=== PATIENT | female | born 1945 | race Two or more races ===

== ENCOUNTER 2019-07-18 22:03 | Inpatient (IN) | payer BC ==
[~2019-07-18] VITALS: Ht 162.6 cm; Wt 48.5 kg
--- NOTE | 2019-07-18 22:07 | NUR ---
PT BIBRA. C/O "WOKE UP FROM CHEST DISCOMFORT X40 MINS AGO. GIVEN X1 SPRAY NITRO, CHEST DISCOMFORT BETTER. L ARM DISCOMFORT" AOX4. SISTER AT BEDSIDE. PT ON MONITOR IN BED 8. WILL CONTINUE TO MONITOR.
--- NOTE | 2019-07-18 22:08 | NUR ---
TECH AT BEDSIDE FOR EKG
--- NOTE | 2019-07-18 22:13 | NUR ---
PHLEB AT BEDSIDE FOR BLOOD DRAW
[2019-07-18] MEDS ORDERED: ASPIRIN 81 MG TAB.CHEW ONE (22:19)
[2019-07-18 22:24] LABS: BASOPHILS % (AUTO) 0.5 % (0.0-2.0); EOSINOPHILS % (AUTO) 0.8 % (0.0-6.0); HEMATOCRIT 32 % (33-45); HEMOGLOBIN 11.2 g/dL (11.5-14.8); LYMPHOCYTES % (AUTO) 39.4 % (20.0-44.0); MEAN CORPUSCULAR HGB CONC 35 g/dl (31.0-36.0); MEAN CORPUSCULAR VOLUME 84 fL (82-100); MONOCYTES # (AUTO) 0.5 /CMM (0.1-1.30); MONOCYTES % (AUTO) 6.9 % (2.0-12.0); NEUTROPHILS % (AUTO) 52.4 % (43.0-81.0); PLATELET COUNT (AUTO) 197 /CMM (150-450); RED BLOOD CELL COUNT(AUTO) 3.76 MIL/uL (4.0-5.2); WHITE BLOOD COUNT (AUTO) 7.6 K/uL (4.3-11.0)
[2019-07-18] MEDS ORDERED: LORAZEPAM INJ 2 MG/ML VIAL ONE (22:24)
[2019-07-18] MEDS ORDERED: LORAZEPAM INJ 2 MG/ML VIAL IV ONE (22:30)
[2019-07-18] MEDS ORDERED: ASPIRIN 325 MG TABLET PO ONE (22:30)
[2019-07-18 22:37] LABS: ALANINE AMINOTRANSFERASE 13 U/L (12-78); ALBUMIN 3.7 g/dL (3.4-5.0); ALKALINE PHOSPHATASE 48 U/L (46-116); ASPARTATE AMINOTRANSFERASE 27 U/L (15-37); BILIRUBIN,DIRECT 0.2 mg/dL (0.0-0.2); BILIRUBIN,TOTAL 0.6 mg/dL (0.2-1.0); CALCIUM, SERUM 8.1 mg/dL (8.5-10.1); CARBON DIOXIDE 18 mmol/L (21-32); CHLORIDE 86 mmol/L (98-107); CREATININE 0.9 mg/dL (0.6-1.3); GLUCOSE 202 mg/dL (74-106); POTASSIUM 3.7 mmol/L (3.5-5.1); TOTAL PROTEIN, SERUM 6.8 g/dL (6.4-8.2); UREA NITROGEN, BLOOD 16 mg/dL (7-18)
[2019-07-18 22:39] LABS: SODIUM SERUM 117 mmol/L (136-145)
--- NOTE | 2019-07-18 22:39 | NUR ---
SODIUM 117. MD AWARE.
[2019-07-18] MEDS ORDERED: DENO60DI SQ (22:42)
[2019-07-18] MEDS ORDERED: AMLO1TAB39 PO (22:44)
[2019-07-18] MEDS ORDERED: CARB-93 PO (22:44)
[2019-07-18] MEDS ORDERED: MIRT15TA7 PO (22:45)
[2019-07-18] MEDS ORDERED: POLY17PO4 PO (22:45)
[2019-07-18] MEDS ORDERED: GABA-532 PO (22:46)
[2019-07-18] MEDS ORDERED: IV Sodium Chloride 3% 500 ML 500 ML IV ONE ×2 (23:00→23:02)
--- NOTE | 2019-07-18 23:14 | NUR ---
IV 3% NS 100 ML FLUID IN 10 MIN BOLUS STARTED INSTRUCTED BY ER MD.
[2019-07-19] MEDS ORDERED: ASPIRIN 81 MG TAB.CHEW PO ONE
--- NOTE | 2019-07-19 00:47 | NUR ---
BED 308-1
[2019-07-19] MEDS ORDERED: HYDROCODONE/APAP 5/325MG 1 EACH TABLET PO PRN (01:00)
[2019-07-19] MEDS ORDERED: MAG HYDROX/AL HYDROX/SIMETH 30 ML UDC PO PRN (01:00)
[2019-07-19] MEDS ORDERED: ZOLPIDEM TARTRATE 5 MG TABLET PO PRN (01:00)
[2019-07-19] MEDS ORDERED: MAGNESIUM HYDROXIDE 30 ML UDC PO PRN (01:00)
[2019-07-19] MEDS ORDERED: ONDANSETRON HCL/PF 4 MG/2 ML VIAL IVP PRN (01:00)
[2019-07-19] MEDS ORDERED: Z GUARD REMEDY 2 OZ OINT TP PRN (01:00)
--- NOTE | 2019-07-19 01:00 | NUR ---
REPORT GIVEN TO NATHEN BURGESS FOR FIORDALIZA
--- NOTE | 2019-07-19 01:50 | NUR ---
TIMOTEO RN NOTES RECEIVED PTS FROM ER ,A 74 Y/O FEMALE A/O X4 ABLE TO MAKE NEEDS KNOWN , ADMITTED WITH DIAGNOSIS CHESTPAIN/ HYPONATREMIA., SISTER AT BEDSIDE , UPDATED WITH PTS CONDITION, ALL NEEDS ATTENDED TOO CALL LIGHT WITHIN REACH .V/S STABLE /AFEBRILE , SKIN ASSESSMENT DONE HEAD TO TOE , SKIN INTACT . ALL NEEDS ATTENDED TO PTS ON R/A SATING 98% WILL CONTINUE TO MONITOR PT,
[2019-07-19] MEDS: IV NS 0.9% 1,000 ML IV SCH ×3 (01:53→21:21)
[2019-07-19 02:11] VITALS: BP 134/75
[2019-07-19 04:00] VITALS: BP 130/74
[2019-07-19] MEDS: ACETAMINOPHEN 325 MG TABLET PO PRN ×2 (04:27→23:19)
[2019-07-19 04:29] LABS: BASOPHILS % (AUTO) 0.5 % (0.0-2.0); EOSINOPHILS % (AUTO) 0.6 % (0.0-6.0); HEMATOCRIT 32 % (33-45); HEMOGLOBIN 11.3 g/dL (11.5-14.8); LYMPHOCYTES # (AUTO) 1.6 /CMM (0.8-4.8); LYMPHOCYTES % (AUTO) 28.9 % (20.0-44.0); MEAN CORPUSCULAR HGB CONC 35 g/dl (31.0-36.0); MEAN CORPUSCULAR VOLUME 84 fL (82-100); MONOCYTES # (AUTO) 0.3 /CMM (0.1-1.30); MONOCYTES % (AUTO) 6.1 % (2.0-12.0); NEUTROPHILS # (AUTO) 3.5 /CMM (1.8-8.9); NEUTROPHILS % (AUTO) 63.9 % (43.0-81.0); PLATELET COUNT (AUTO) 192 /CMM (150-450); RED BLOOD CELL COUNT(AUTO) 3.79 MIL/uL (4.0-5.2); WHITE BLOOD COUNT (AUTO) 5.5 K/uL (4.3-11.0)
[2019-07-19 04:54] LABS: CREATININE 0.8 mg/dL (0.6-1.3); MAGNESIUM 2.2 mg/dL (1.8-2.4); PHOSPHORUS 2.9 mg/dL (2.5-4.9); POTASSIUM 3.7 mmol/L (3.5-5.1)
--- NOTE | 2019-07-19 05:50 | NUR ---
TIMOTEO RN NOTES PTS IN BED AWAKE , CONTINUE IVF OF NS AT 100CC/HR INFUSING WELL , NO SOB NO DISTRESS NOTED, WILL ENDORSE TO RN DAY SHIFT FOR CONTINUITY OF CARE.
--- NOTE | 2019-07-19 07:05 | NUR ---
RN NOTES RECEIVED PT ON BED, A/Ox4, ON RA , PT DENIES ANY CHEST PAIN , ON TELE SR HR IN 80'S , NS AT 100 CC /HR RUNNING VIA L HAND IV SITE G 20 , SITE CLEAN , DRY AND INTACT, SUPPORTIVE FAMILY AT THE BEDSIDE, SR UP x3, CALL LIGHT WITHIN EASY REACH, BED LOCKED AND IN LOWEST POSITION, CONTINUE TO MONITOR .
[2019-07-19 08:00] VITALS: BP 127/52
[2019-07-19] MEDS: POLYETHYLENE GLYCOL 3350 17 GM POWD.PACK PO SCH (08:40)
[2019-07-19] MEDS: CARBIDOPA/LEVODOPA 25/100 MG 1 UDTAB PO SCH ×3 (08:40→17:06)
[2019-07-19] MEDS: GABAPENTIN 100 MG CAPSULE PO SCH ×3 (08:40→17:06)
[2019-07-19] MEDS: ENOXAPARIN SODIUM 40 MG/0.4 ML DISP.SYRIN SQ SCH (10:00)
[2019-07-19 12:00] VITALS: BP 134/80
--- NOTE | 2019-07-19 12:27 | NUR ---
RN NOTES PT REQUESTING TO SEE DR ALEK MD NOTIFED .
--- NOTE | 2019-07-19 14:00 | NUR ---
RN NOTES FAMILY AT THE BEDSIDE, PT STABLE, CONTINUE TO MONITOR .
[2019-07-19 16:00] VITALS: BP 139/53
[2019-07-19 16:27] LABS: URINE SODIUM, RANDOM 61 mmol/l (40-220)
[2019-07-19 17:01] LABS: OSMOLALITY,URINE 185 mOS/kg (340-1090)
[2019-07-19] MEDS: AMOXICILLIN TRIHYDRATE 250 MG CAPSULE PO SCH ×2 (17:05→21:40)
[2019-07-19] MEDS: CLARITHROMYCIN 500 MG TABLET PO SCH ×2 (17:05→21:24)
[2019-07-19] MEDS: PANTOPRAZOLE 40 MG TABLET.DR PO SCH (17:06)
[2019-07-19] MEDS ORDERED: MIRTAZAPINE 15 MG TABLET PO SCH (18:00)
--- NOTE | 2019-07-19 18:30 | NUR ---
RN NOTES NO SIGNIFICANT CHANGES NOTED ON THIS SHIFT, PT STABLE, WILL ENDOSE TO DIRECTOR OF EPIDEMIOLOGY NURSE FOR CONTINUITY OF CARE .
[2019-07-19 20:00] VITALS: BP 133/53
--- NOTE | 2019-07-19 21:40 | NUR ---
COIL WRAPPER OF CARE 2139 RECEIVED PATIENT FROM NATHEN WYNN AT 2138. ALL MEDS GIVEN PRIOR TO TRANSFER OF CARE. PATIENT IS A/O X 4, ON RA. PATIENT DENIES ANY PAIN OR DISCOMFORT AT THIS TIME. IV SITE RFA #22 INTACT AND PATENT WITH NS 100 ML/HR. SAFETY PRECAUTIONS IMPLEMENTED; CALL LIGHT WITHIN REACH, BED LOWEST POSITION, BED LOCKED, SIDE RAILS UP X2. WILL CONTINUE TO MONITOR.
--- NOTE | 2019-07-19 21:40 | NUR ---
RN NOTES AMOXICILLIN DUE FOR 2100 GIVEN BY NATHEN WYNN. MED WAS NOT DOCUMENTED OR SCANNED.
[2019-07-20] VITALS: BP 119/73
[2019-07-20 04:00] VITALS: BP 146/75
[2019-07-20] MEDS: IV NS 0.9% 1,000 ML IV SCH (06:06)
--- NOTE | 2019-07-20 06:49 | NUR ---
RN CLOSING NOTES PATIENT IN BED AWAKE, RESTING COMFORTABLY IN BED. PATIENT A/O X 4. NO SIGNS OF RESPIRATORY DISTRESS NOTED. DENIES SHORTNESS OF BREATH. PATIENT DENIES ANY FORM OF PAIN AT THIS TIME. IVF FLUIDS INFUSING AT 100 ML/HR ON RFA. PATIENT KEPT CLEAN AND DRY. PATIENT TURNED EVERY 2 HOURS AND REPOSITIONED. SAFETY PRECAUTIONS IMPLEMENTED; CALL LIGHT WITHIN REACH, BED LOWEST POSITION, BED LOCKED, SIDE RAILS UP X2. WILL ENDORSE TO DAY NURSE FOR CONTINUITY OF CARE.
[2019-07-20 07:00] LABS: CALCIUM, SERUM 8.3 mg/dL (8.5-10.1); POTASSIUM 4.5 mmol/L (3.5-5.1)
[2019-07-20 07:01] LABS: CREATININE 0.8 mg/dL (0.6-1.3)
--- NOTE | 2019-07-20 07:25 | NUR ---
MS/RN OPENING NOTES RECIEVED PATIENT IN BED AWAKE, ALERT AND ABLE TO MAKE NEEDS KNOWN. PATIENT IS ALERT AND ORIENTED X4. NO PAIN OR ACUTE DISTRESS AT THIS TIME. RESPIRATION EVEN AND UNLABORED. SKIN IS DRY WARM TO TOUCH. PATIENT NOTED WITH IV SITE RFA #22 INTACT AND PATENT WITH NS 100 ML/HR. NO S/S OF INFECTION OR INFILTRATION. ALL NEEDS ANTICIPATED. CALL LIGHT WITHIN REACHED. SAFETY MAINTAINED. BED LOCKED AND IN LOWEST POSITION. WILL CONTINUE TO MONITOR CLOSELY.
[2019-07-20] MEDS: PANTOPRAZOLE 40 MG TABLET.DR PO SCH (07:47)
[2019-07-20 08:00] VITALS: BP 147/61
[2019-07-20] MEDS: AMOXICILLIN TRIHYDRATE 250 MG CAPSULE PO SCH (08:43)
[2019-07-20] MEDS: POLYETHYLENE GLYCOL 3350 17 GM POWD.PACK PO SCH (08:43)
[2019-07-20] MEDS: GABAPENTIN 100 MG CAPSULE PO SCH ×2 (08:43→13:02)
[2019-07-20] MEDS: CARBIDOPA/LEVODOPA 25/100 MG 1 UDTAB PO SCH ×2 (08:43→13:02)
[2019-07-20] MEDS: CLARITHROMYCIN 500 MG TABLET PO SCH (09:31)
[2019-07-20] MEDS: ENOXAPARIN SODIUM 40 MG/0.4 ML DISP.SYRIN SQ SCH (09:32)
--- NOTE | 2019-07-20 14:04 | NUR ---
MS/PLUG OVERWRAP MACHINE TENDER NOTES CAME TO THE UNIT TO SEWING MACHINE OPERATOR PAPER BAGS PATIENT. DISCHARGE PAPERS SIGNED AND GIVEN WITH COPIES IN THE CHART. SKIN ASSESSMENT DONE. SKIN IS INTACT. PATIENT WAS HELPED DRESS BY GWEN LOZANO. PATIENT WAS PLACED IN A WHEELCHAIR AND WAS ACCOMPANIED TO THE LOBBY. PATIENT LEFT THE UNIT IN STABLE CONDITION.
== END 2019-07-20 13:30 | disposition home or self-care (01) | DRG 206 ==
LOC: ER 22:07 → TELE 07-19 00:51 → TELE-TD 07-19 01:39 → MEDSG1 07-19 09:43
PROVIDERS: ADMIT Internal Medicine; ATTEND Internal Medicine
DX: M94.0 Chondrocostal junction syndrome [Tietze] (principal); E87.1 Hypo-osmolality and hyponatremia; K29.70 Gastritis, unspecified, without bleeding; I10 Essential (primary) hypertension; G20 Parkinson's disease; D63.8 Anemia in other chronic diseases classified elsewhere; E78.5 Hyperlipidemia, unspecified; K21.9 Gastro-esophageal reflux disease without esophagitis
CPT/HCPCS: 36415; 71045-TC; 80048-TC; 80061-TC; 80076-TC; 83735-TC; 83935-TC; 84100-TC; 84300-TC; 84484-TC; 85025-TC; 85730-TC; 87081-TC; 93307-TC; G0378; J1650; J2060; J3490; J7030